=== PATIENT | male | born 1955 | race Caucasian/White ===

== ENCOUNTER 2022-05-31 18:03 | Emergency (ER) | payer BC, MEDICARE ==
[2022-05-31] MEDS ORDERED: Sodium Chloride 0.9% 10 ML Syringe FLUSH PRN (19:14)
[2022-05-31] MEDS ORDERED: HYDROmorphone 0.5 MG/0.5 ML Syringe IVPUSH ONE (19:16)
[2022-05-31] MEDS ORDERED: Sodium Chloride 0.9% 1,000 ML IV STA (19:16)
[2022-05-31] MEDS ORDERED: Ondansetron 4 MG/2 ML SDV IVPUSH ONE (19:16)
[2022-05-31] MEDS ORDERED: Ketorolac 30 MG/ML SDV IVPUSH ONE (19:16)
[2022-05-31] MEDS ORDERED: diphenhydrAMINE 50 MG/ML SDV IVPUSH ONE (19:17)
[2022-05-31] MEDS ORDERED: Iopamidol 612 MG/ML 50 ML SDV IVPUSH ONE (20:09)
[2022-05-31] MEDS ORDERED: Iopamidol 612 MG/ML 100 ML Bottle IVPUSH ONE (20:09)
[2022-05-31 21:19] LABS: CORONAVIRUS COVID-19 NAA POSITIVE (NEGATIVE)
== END 2022-05-31 22:28 | disposition home or self-care (01) ==
LOC: JD.ED 18:03
DX: U07.1 COVID-19 (principal); I10 Essential (primary) hypertension; F17.210 Nicotine dependence, cigarettes, uncomplicated; K50.90 Crohn's disease, unspecified, without complications; Z88.2 Allergy status to sulfonamides
CPT/HCPCS: 0241U; 36415; 70450; 71260; 74177; 80053; 81001; 83605; 85025; 86140; 87040; 96361; 96374; 96375; 99284; J1170; J1200; J1885; J2405; J3490; J7030; Q9967; 86788

== ENCOUNTER 2022-12-04 06:20 | Day surgery (SDC) | payer MEDICARE, OTHER ==
[~2022-12-04 06:20] MED LIST: Acetaminophen 325 MG Tab PO SCH; Lactated Ringers 1,000 ML IV SCH; Lidocaine 1%/Sod Bicarbonate in NS 8.4% 1 ML Syringe IDERM PRN; Pregabalin 25 MG Cap PO SCH; Sodium Chloride 0.9% 10 ML Syringe FLUSH PRN; Sodium Chloride 0.9% 10 ML Syringe FLUSH SCH; oxyCODONE ER 10 MG TAB.ER PO SCH
[2022-12-04] MEDS ORDERED: Ondansetron 4 MG/2 ML SDV IVPUSH PRN (07:20)
[2022-12-04] MEDS ORDERED: HYDROmorphone 0.5 MG/0.5 ML Syringe IVPUSH PRN (07:20)
[2022-12-04] MEDS ORDERED: fentaNYL 100 MCG/2 ML SDV IVPUSH PRN (07:20)
[2022-12-04] MEDS ORDERED: Midazolam 1 MG/ML 2 ML SDV ONE (07:26)
[2022-12-04] MEDS ORDERED: Propofol 200 MG/20 ML SDV ONE ×3 (07:27→09:16)
[2022-12-04] MEDS ORDERED: fentaNYL 100 MCG/2 ML SDV ONE (07:27)
[2022-12-04] MEDS ORDERED: Lidocaine 1% 2 ML ONE (07:28)
[2022-12-04] MEDS ORDERED: EPINEPHrine 1 MG/ML SDV ONE (07:40)
[2022-12-04] MEDS ORDERED: ceFAZolin 2 GM Vial ONE (07:40)
[2022-12-04] MEDS ORDERED: Ropivacaine 0.5% 5 MG/ML 30 ML SDV ONE (07:42)
[2022-12-04] MEDS: Morphine 8 MG, EPINEPHrine 0.3 MG, Cefuroxime 750 MG, Ketorolac 30 MG, Sodium Chloride ... PRN ×10 (09:23→09:35)
[2022-12-04] MEDS: Tranexamic Acid 1,000 MG/10 ML Vial ONE ×2 (09:23→09:41)
[2022-12-04] MEDS: Vancomycin 1 GM SDV ONE ×2 (09:23→09:41)
[2022-12-04] MEDS: Bupivacaine 0.25% 10 ML SDV ONE ×2 (09:23→10:00)
[2022-12-04] MEDS: Triamcinolone Acetonide 40 MG/ML 1 ML SDV ONE ×2 (09:24→10:00)
[2022-12-04] MEDS ORDERED: Acetaminophen/HYDROcodone 325-5 MG Tab PO ONE (11:36)
[2022-12-04] MEDS ORDERED: Acetaminophen/HYDROcodone 325-5 MG Tab PO SCH (12:50)
[2022-12-04] MEDS ORDERED: Phenylephrine HCl In 0.9% NaCl 1 MG/10 ML Vial ONE (15:45)
[2022-12-04] MEDS ORDERED: ePHEDrine 50 MG/ML SDV ONE (15:45)
== END 2022-12-04 13:08 | disposition home or self-care (01) ==
LOC: JD.SDS 06:20
PROVIDERS: ATTEND Orthopaedic Surgery
DX: M17.0 Bilateral primary osteoarthritis of knee (principal); I10 Essential (primary) hypertension; E03.9 Hypothyroidism, unspecified; E78.5 Hyperlipidemia, unspecified; I25.10 Atherosclerotic heart disease of native coronary artery without angina pectoris; M79.81 Nontraumatic hematoma of soft tissue; F17.290 Nicotine dependence, other tobacco product, uncomplicated; Z79.890 Hormone replacement therapy; Z79.899 Other long term (current) drug therapy; Z88.2 Allergy status to sulfonamides
CPT/HCPCS: 0055T; 20610; 27447; 64447; 73560; 97110; 97116; 97161; A9270; C1713; C1776; J0171; J0690; J0697; J1885; J2250; J2270; J2704; J2795; J3010; J3301; J3370; J3490; J7120; 01402